=== PATIENT | female | born 1975 | race Caucasian/White ===

== ENCOUNTER 2024-07-16 05:33 | Inpatient (IN) | payer BC, OTHER ==
[~2024-07-16] VITALS: Ht 172.7 cm; Wt 151.5 kg
[2024-07-16] VITALS (7 sets, daily range): BP systolic 128–156; BP diastolic 74–95; TEMP 97.3–101.5; O2SAT 92–93
[2024-07-16 08:37] LABS: BASO % 0.3 % (0.0-1.0); EOS # 0.1 10^3/uL (0.0-0.5); EOS % 0.8 % (0.0-3.0); HEMATOCRIT 44.3 % (36.0-47.0); HEMOGLOBIN 14.4 g/dl (12.0-15.5); LYMPH # 1.2 10^3/uL (1.5-5.0); LYMPH % 9.7 % (24.0-44.0); MEAN CORPUSCULAR HEMOGLOBIN 26.6 pg (27.0-33.0); MEAN CORPUSCULAR HGB CONC 32.5 g/dl (32.0-36.5); MEAN CORPUSCULAR VOLUME 81.9 fl (80.0-96.0); MONO # 0.7 10^3/uL (0.0-0.8); MONO % 5.9 % (2.0-8.0); NEUTROPHILS # 10.1 10^3/uL (1.5-8.5); NEUTROPHILS % 82.8 % (36.0-66.0); PLATELET COUNT, AUTOMATED 284 10^3/uL (150-450); RED BLOOD COUNT 5.41 10^6/uL (4.00-5.40); WHITE BLOOD COUNT 12.2 10^3/uL (4.0-10.0)
[2024-07-16] MEDS: KETOROLAC 30 MG/ML 1ML VIAL IV ONE (08:37)
[2024-07-16] MEDS: NS 1,000 ML IV ONE (08:38)
[2024-07-16 08:58] LABS: LIPASE 346 U/L (12-53)
[2024-07-16 09:00] LABS: ALBUMIN 3.4 G/DL (3.2-5.2); ALKALINE PHOSPHATASE 88 U/L (46-116); ALT/SGPT 34 U/L (7.0-40); AST/SGOT 21 U/L (<34); BILIRUBIN,DIRECT 0.2 MG/DL (<0.4); BILIRUBIN,TOTAL 0.7 MG/DL (0.3-1.2); TOTAL PROTEIN 7.2 G/DL (5.7-8.2)
[2024-07-16] MEDS: ONDANSETRON 4MG 2ML VIAL IV ONE (10:50)
[2024-07-16] MEDS: MORPHINE 4 MG/ML 1ML VIAL IV ONE (10:50)
[2024-07-16] MEDS: LR 1,000 ML IV ONE (11:02)
[2024-07-16] MEDS ORDERED: THERTAB52 PO (11:51)
[2024-07-16] MEDS ORDERED: VITA100054 PO (11:51)
[2024-07-16] MEDS ORDERED: HYDR50TAB PO (11:51)
[2024-07-16] MEDS ORDERED: HOME MED LIST COMPLETE! XX SCH (11:55)
[2024-07-16 12:39] LABS: TRIGLYCERIDES LEVEL 64 MG/DL (<150)
[2024-07-16] MEDS ORDERED: **hydrALAZINE HCL** 25 MG TAB PO PRN (12:55)
[2024-07-16] MEDS: LR 1,000 ML IV SCH (13:24)
[2024-07-16] MEDS: PERCOCET 5MG/325MG TAB PO PRN (13:25)
[2024-07-16 14:15] LABS: BLOOD UREA NITROGEN 12 MG/DL (9-23); CALCIUM LEVEL 8.9 MG/DL (8.5-10.1); CARBON DIOXIDE LEVEL 24 MMOL/L (20-31); CHLORIDE LEVEL 106 MMOL/L (98-107); GLOMERULAR FILTRATION RATE > 60.0 (>58); GLUCOSE, FASTING 101 MG/DL (60-100); POTASSIUM SERUM 3.8 MMOL/L (3.5-5.1); SODIUM LEVEL 139 MMOL/L (136-145)
[2024-07-16 14:27] LABS: PROCALCITONIN 0.07 ng/ml
[2024-07-16] MEDS: MORPHINE 2 MG/ML 1ML VIAL IV PRN (15:20)
[2024-07-16] MEDS: ONDANSETRON 4MG 2ML VIAL IV PRN (18:29)
[2024-07-16] MEDS: HYDROMORPHONE HCL 0.5 MG/ 0.5 ML SYRINGE IV PRN (19:34)
[2024-07-16] MEDS: ACETAMINOPHEN TAB 650MG DOSE (2X325MG) PO PRN (20:33)
[2024-07-16] MEDS ORDERED: NALOXONE INJ 0.4MG/1ML VIAL IV PRN (20:55)
[2024-07-16 22:06] LABS: VENOUS BASE EXCESS -1.8 (-2.0-2.0); VENOUS HCO3 22.3 MMOL/L (23.0-27.0); VENOUS O2 SATURATION 98.5 % (60.0-80.0); VENOUS PARTIAL PRESSURE O2 132.4 mmHg (30.0-50.0); VENOUS TOTAL CO2 23.4 MMOL/L (24.0-28.0)
[2024-07-16 22:23] LABS: BASO # 0.1 10^3/uL (0.0-0.2); BASO % 0.4 % (0.0-1.0); EOS # 0.1 10^3/uL (0.0-0.5); EOS % 0.9 % (0.0-3.0); HEMATOCRIT 37.4 % (36.0-47.0); LYMPH # 0.9 10^3/uL (1.5-5.0); LYMPH % 7.1 % (24.0-44.0); MEAN CORPUSCULAR HEMOGLOBIN 26.9 pg (27.0-33.0); MEAN CORPUSCULAR HGB CONC 32.4 g/dl (32.0-36.5); MEAN CORPUSCULAR VOLUME 83.1 fl (80.0-96.0); MONO # 0.7 10^3/uL (0.0-0.8); NEUTROPHILS # 10.5 10^3/uL (1.5-8.5); PLATELET COUNT, AUTOMATED 257 10^3/uL (150-450); WHITE BLOOD COUNT 12.3 10^3/uL (4.0-10.0)
[2024-07-16 22:25] LABS: HEMOGLOBIN 12.1 g/dl (12.0-15.5)
[2024-07-16 22:40] LABS: MAGNESIUM LEVEL 1.8 MG/DL (1.8-2.4)
[2024-07-17] VITALS (8 sets, daily range): BP systolic 136–159; BP diastolic 74–85; TEMP 100–101.3; O2SAT 85–94
[2024-07-17 05:57] LABS: BASO % 0.2 % (0.0-1.0); EOS # 0.2 10^3/uL (0.0-0.5); EOS % 1.9 % (0.0-3.0); HEMATOCRIT 37.3 % (36.0-47.0); LYMPH # 1.1 10^3/uL (1.5-5.0); LYMPH % 8.8 % (24.0-44.0); MEAN CORPUSCULAR HEMOGLOBIN 27.1 pg (27.0-33.0); MEAN CORPUSCULAR HGB CONC 32.2 g/dl (32.0-36.5); MEAN CORPUSCULAR VOLUME 84.4 fl (80.0-96.0); MONO # 0.8 10^3/uL (0.0-0.8); MONO % 6.8 % (2.0-8.0); NEUTROPHILS # 9.9 10^3/uL (1.5-8.5); NEUTROPHILS % 81.8 % (36.0-66.0); PLATELET COUNT, AUTOMATED 218 10^3/uL (150-450); RED BLOOD COUNT 4.42 10^6/uL (4.00-5.40); WHITE BLOOD COUNT 12.1 10^3/uL (4.0-10.0)
[2024-07-17 06:17] LABS: LIPASE 67 U/L (12-53)
[2024-07-17 06:19] LABS: BLOOD UREA NITROGEN 15 MG/DL (9-23); CALCIUM LEVEL 8.2 MG/DL (8.5-10.1); CARBON DIOXIDE LEVEL 26 MMOL/L (20-31); CHLORIDE LEVEL 107 MMOL/L (98-107); CREATININE FOR GFR 0.68 MG/DL (0.55-1.30); GLOMERULAR FILTRATION RATE > 60.0 (>58); GLUCOSE, FASTING 96 MG/DL (60-100); POTASSIUM SERUM 3.9 MMOL/L (3.5-5.1); SODIUM LEVEL 139 MMOL/L (136-145)
[2024-07-17] MEDS: PANTOPRAZOLE 40MG VIAL IV SCH (09:48)
[2024-07-17] MEDS: ENOXAPARIN 40MG/0.4ML SYRINGE (J1650 PER 10MG) SC SCH (09:48)
[2024-07-17] MEDS: HYDROMORPHONE HCL 0.5 MG/ 0.5 ML SYRINGE IV PRN (09:49)
[2024-07-17] MEDS: amLODIPine 5 MG TAB PO SCH (15:37)
[2024-07-18] VITALS (16 sets, daily range): BP systolic 138–170; BP diastolic 71–92; TEMP 97.3–101; O2SAT 87–94
[2024-07-18 06:18] LABS: BASO # 0.1 10^3/uL (0.0-0.2); BASO % 0.5 % (0.0-1.0); EOS # 0.5 10^3/uL (0.0-0.5); EOS % 5.5 % (0.0-3.0); HEMATOCRIT 35.3 % (36.0-47.0); HEMOGLOBIN 11.5 g/dl (12.0-15.5); LYMPH # 1.1 10^3/uL (1.5-5.0); LYMPH % 11.3 % (24.0-44.0); MEAN CORPUSCULAR HEMOGLOBIN 27.1 pg (27.0-33.0); MEAN CORPUSCULAR HGB CONC 32.6 g/dl (32.0-36.5); MEAN CORPUSCULAR VOLUME 83.1 fl (80.0-96.0); MONO # 0.7 10^3/uL (0.0-0.8); MONO % 6.6 % (2.0-8.0); NEUTROPHILS # 7.5 10^3/uL (1.5-8.5); NEUTROPHILS % 75.6 % (36.0-66.0); PLATELET COUNT, AUTOMATED 252 10^3/uL (150-450); RED BLOOD COUNT 4.25 10^6/uL (4.00-5.40); WHITE BLOOD COUNT 9.9 10^3/uL (4.0-10.0)
[2024-07-18 06:44] LABS: BLOOD UREA NITROGEN 14 MG/DL (9-23); CALCIUM LEVEL 8.1 MG/DL (8.5-10.1); CARBON DIOXIDE LEVEL 29 MMOL/L (20-31); CHLORIDE LEVEL 105 MMOL/L (98-107); CREATININE FOR GFR 0.68 MG/DL (0.55-1.30); GLOMERULAR FILTRATION RATE > 60.0 (>58); GLUCOSE, FASTING 93 MG/DL (60-100); POTASSIUM SERUM 3.9 MMOL/L (3.5-5.1); SODIUM LEVEL 139 MMOL/L (136-145)
[2024-07-18] MEDS: FUROSEMIDE 100MG/10ML VIAL IV ONE ×2 (10:59→20:37)
[2024-07-18 20:40] LABS: IONIZED CALCIUM 4.6 MG/DL (4.5-5.3)
[2024-07-18 21:08] LABS: BLOOD UREA NITROGEN 11 MG/DL (9-23); CALCIUM LEVEL 8.8 MG/DL (8.5-10.1); CARBON DIOXIDE LEVEL 34 MMOL/L (20-31); CHLORIDE LEVEL 105 MMOL/L (98-107); CREATININE FOR GFR 0.71 MG/DL (0.55-1.30); GLOMERULAR FILTRATION RATE > 60.0 (>58); GLUCOSE, FASTING 114 MG/DL (60-100); MAGNESIUM LEVEL 1.9 MG/DL (1.8-2.4); POTASSIUM SERUM 3.9 MMOL/L (3.5-5.1); SODIUM LEVEL 139 MMOL/L (136-145)
[2024-07-19 03:50] VITALS: BP 139/70; TEMP 99; O2SAT 97
[2024-07-19 06:59] LABS: CHOLESTEROL LEVEL 170 MG/DL (<200); CHOLESTEROL RISK RATIO 4.23 (<5); HDL CHOLESTEROL 40.1 MG/DL (>40); LDL CHOLESTEROL 114.9 MG/DL (<100); NON-HDL-C 129.9 MG/DL; TRIGLYCERIDES LEVEL 75 MG/DL (<150)
[2024-07-19 08:00] VITALS: BP 140/81
[2024-07-19 11:27] LABS: LIPASE 30 U/L (12-53)
[2024-07-19 11:29] LABS: ALBUMIN 2.6 G/DL (3.2-5.2); ALKALINE PHOSPHATASE 70 U/L (46-116); ALT/SGPT 24 U/L (7.0-40); AST/SGOT 21 U/L (<34); BILIRUBIN,TOTAL 0.5 MG/DL (0.3-1.2); BLOOD UREA NITROGEN 10 MG/DL (9-23); CALCIUM LEVEL 8.5 MG/DL (8.5-10.1); CARBON DIOXIDE LEVEL 31 MMOL/L (20-31); CHLORIDE LEVEL 103 MMOL/L (98-107); CREATININE FOR GFR 0.66 MG/DL (0.55-1.30); GLOMERULAR FILTRATION RATE > 60.0 (>58); GLUCOSE, FASTING 88 MG/DL (60-100); POTASSIUM SERUM 3.4 MMOL/L (3.5-5.1); SODIUM LEVEL 139 MMOL/L (136-145); TOTAL PROTEIN 6.2 G/DL (5.7-8.2)
[2024-07-19 11:40] LABS: BASO # 0.1 10^3/uL (0.0-0.2); BASO % 0.7 % (0.0-1.0); EOS # 0.6 10^3/uL (0.0-0.5); EOS % 7.5 % (0.0-3.0); HEMATOCRIT 37.4 % (36.0-47.0); LYMPH % 13.6 % (24.0-44.0); MEAN CORPUSCULAR HEMOGLOBIN 26.5 pg (27.0-33.0); MEAN CORPUSCULAR HGB CONC 32.1 g/dl (32.0-36.5); MEAN CORPUSCULAR VOLUME 82.7 fl (80.0-96.0); MONO # 0.5 10^3/uL (0.0-0.8); MONO % 6.9 % (2.0-8.0); NEUTROPHILS # 5.2 10^3/uL (1.5-8.5); NEUTROPHILS % 70.5 % (36.0-66.0); PLATELET COUNT, AUTOMATED 297 10^3/uL (150-450); RED BLOOD COUNT 4.52 10^6/uL (4.00-5.40); WHITE BLOOD COUNT 7.4 10^3/uL (4.0-10.0)
[2024-07-19 11:41] LABS: PROCALCITONIN 0.09 ng/ml
[2024-07-19 12:00] VITALS: BP 134/78; TEMP 98.1; O2SAT 94
[2024-07-19] MEDS: POTASSIUM CHLORIDE 10MEQ SR TABLET PO ONE ×2 (12:54→18:00)
[2024-07-19] MEDS: metOLazone 5 MG TAB PO ONE (12:54)
[2024-07-19 13:45] VITALS: BP 144/77
[2024-07-19] MEDS: FUROSEMIDE 40MG/4ML VIAL IV ONE ×2 (13:45→19:36)
[2024-07-19] MEDS ORDERED: OXYC1TAB23 PO (17:00)
[2024-07-19] MEDS ORDERED: NORV5TAB PO (17:10)
[2024-07-19] MEDS: POTASSIUM CHLORIDE 10MEQ SR TABLET PO SCH (20:18)
[2024-07-19 20:36] VITALS: BP 139/93; TEMP 97; O2SAT 94
[2024-07-20 04:17] VITALS: BP 153/77; TEMP 97; O2SAT 95
[2024-07-20 06:01] LABS: IONIZED CALCIUM 4.5 MG/DL (4.5-5.3)
[2024-07-20 06:33] LABS: BLOOD UREA NITROGEN 13 MG/DL (9-23); CALCIUM LEVEL 9.2 MG/DL (8.5-10.1); CARBON DIOXIDE LEVEL 31 MMOL/L (20-31); CHLORIDE LEVEL 99 MMOL/L (98-107); CREATININE FOR GFR 0.79 MG/DL (0.55-1.30); GLOMERULAR FILTRATION RATE > 60.0 (>58); GLUCOSE, FASTING 102 MG/DL (60-100); POTASSIUM SERUM 3.9 MMOL/L (3.5-5.1); SODIUM LEVEL 136 MMOL/L (136-145)
[2024-07-20] MEDS ORDERED: AMLO1TAB24 PO (10:30)
== END 2024-07-20 11:50 | disposition home or self-care (01) | DRG 282 ==
LOC: M ED 05:33 → M ED INP 12:51 → M MSPAV 14:14
PROVIDERS: ADMIT Internal Medicine; ATTEND General Practice
PROC: B246ZZZ Ultrasonography of Right and Left Heart (ICD-10-PCS; principal; 2024-07-19)
DX: K85.90 Acute pancreatitis without necrosis or infection, unspecified (principal); R65.10 Systemic inflammatory response syndrome (SIRS) of non-infectious origin without acute organ dysfunction; K76.0 Fatty (change of) liver, not elsewhere classified; E66.01 Morbid (severe) obesity due to excess calories; Z68.43 Body mass index [BMI] 50.0-59.9, adult; G47.33 Obstructive sleep apnea (adult) (pediatric); R09.02 Hypoxemia; I10 Essential (primary) hypertension; Z79.899 Other long term (current) drug therapy; Z88.0 Allergy status to penicillin; Z88.2 Allergy status to sulfonamides; Z88.8 Allergy status to other drugs, medicaments and biological substances